=== PATIENT | male | born 1985 ===

== ENCOUNTER → 2021-11-27 08:46 | Outpatient (BNVA) | payer OTHER, SELFPAY | PROVIDERS: Visit Provider Nurse Practitioner Family | DX: M54.16 Radiculopathy, lumbar region (principal); M79.18 Myalgia, other site | CPT/HCPCS: 99202 ==

== ENCOUNTER → 2021-12-25 10:50 | Outpatient (BNVA) | payer OTHER, SELFPAY | PROVIDERS: Visit Provider Nurse Practitioner Family | DX: M54.16 Radiculopathy, lumbar region (principal); M79.18 Myalgia, other site | CPT/HCPCS: 99212 ==

== ENCOUNTER 2022-04-16 06:18 | Outpatient (REF) | payer OTHER, SELFPAY ==
--- NOTE | ~2022-04-16 | FL_ITS ---
EXAMINATION: XR FLUOROSCOPY WITH IMAGES CLINICAL INFORMATION: M54.16 - Radiculopathy, lumbar region COMPARISON: None. TECHNIQUE: Fluoroscopy performed by Dr. Tyshawn Monroy. Fluoroscopy time: 0.5 minutes DAP: 4.42 Gycm2 Images: 1 FINDINGS: There is a spinal needle overlying the outer left L5 neural foramen. There is contrast seen in the respective nerve sheath with early transforaminal epidural extension. No visible vascular communication. FL/FL guidance in treatment room IMPRESSION: Fluoroscopy for pain management procedures.
== END 2022-04-16 06:19 | disposition home or self-care (01) ==
LOC: HO.RADIR 06:18
PROVIDERS: Visit Provider Anesthesiology
DX: M54.16 Radiculopathy, lumbar region (principal); M79.18 Myalgia, other site
CPT/HCPCS: 64483; J3300; Q9966

== ENCOUNTER → 2022-05-21 12:47 | Outpatient (BNVA) | payer OTHER, SELFPAY | PROVIDERS: Visit Provider Nurse Practitioner Family | DX: M54.16 Radiculopathy, lumbar region (principal); M79.18 Myalgia, other site | CPT/HCPCS: 99212 ==